=== PATIENT | male | born 1985 | race American Indian/Alaskan Native ===

== ENCOUNTER 2020-10-29 11:06 | Emergency (ER) | payer SELFPAY ==
[2020-10-29 11:17] VITALS: BP 148/89
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
--- NOTE | 2020-10-29 12:22 | XRay Report ---
LEFT HIP 2 VIEW(S) INDICATION / CLINICAL INFORMATION: LEFT HIP PAIN HX OF LEFT HIP JANAY COMPARISON: None available. FINDINGS: BONES / JOINT (S): Previous fracture ORIF transcervical left femoral neck fracture with single lag sc rew. No acute fracture of pelvis or left hip. 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 SOFT TISSUES: No significant abnormality. ADDITIONAL FINDINGS: None. Signer Name: Quoc Hendrix MD Signed: 10/29/2020 12:18 PM Workstation Name: [id number]
== END 2020-10-29 13:28 | disposition home or self-care (01) ==
LOC: ED 11:06
DX: L02.818 Cutaneous abscess of other sites (principal); M25.552 Pain in left hip; F17.200 Nicotine dependence, unspecified, uncomplicated; F12.90 Cannabis use, unspecified, uncomplicated; Z98.890 Other specified postprocedural states; Z79.899 Other long term (current) drug therapy

== ENCOUNTER 2021-09-29 19:33 | Emergency (ER) | payer SELFPAY ==
[2021-09-29] MEDS ORDERED: IBUPROFEN 600 MG TAB PO ONE (22:15)
[2021-09-29] MEDS ORDERED: LIDOCAINE (1%) 10 MG/1 ML VIAL 20 ML MDV INFILTRATI ONE (22:15)
[2021-09-29] MEDS ORDERED: ACETAMINOPHEN 500 MG TAB PO ONE (22:15)
[2021-09-29] MEDS ORDERED: TETANUS,DIPH,PERTUSS(ACELL) VACCINE 0.5 ML SYRINGE IM ONE (22:15)
--- NOTE | 2021-09-30 02:02 | Emergency Department Report ---
- General Chief Complaint: Wound/Laceration Stated Complaint: CUT ON ARM Source: patient Mode of arrival: Ambulatory Limitations: No Limitations - History of Present Illness Initial Comments: Patient is a 36-year-old -[place] male with no past medical history and he is not up-to-date with his tetanus vaccinations presents to the ED with complaint of acute onset painful bleeding left upper arm after a ceramic portion of a toilet seat accidentally cut his left upper arm while lifting the toilet s eat at work 2 hours ago. 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 Patient states that the bleeding is not well controlled. Patient denies fall, dizziness, syncope, headache, neck pain, nausea and vomiting, chest pain or shortness of breath, numbness and tingling or weakness of left upper extremity. -: Sudden, hour(s) (2) Location: other (Medial left upper arm) Extremity Location: Left: Arm (Medial left upper arm laceration wound) 1 - Laceration wound Place: work Patient Tetanus UTD: No Context: accidental, sharp object use Associated Symptoms: pain. denies: loss of feeling/numbness, suspect foreign body present, unable to move injured part, weakness followed by dizziness, nausea/vomiting, fever - Related Data Previous Rx's Medication Instructions Recorded Last Taken Type Ibuprofen [Motrin] 800 mg PO Q8HR PRN #24 tablet 09/30/21 Unknown Rx Sulfamethoxazole/Trimethoprim 1 each PO BID 7 Days #20 tablet 09/30/21 Unknown Rx [Bactrim DS TAB] Allergies Allergy/AdvReac Type Severity Reaction Status Date / Time No Known Allergies Allergy Unverified 10/29/20 11:14 ED Review of Systems ROS: Stated complaint: CUT ON ARM Other details as noted in HPI Constitutional: denies: chills, fever Eyes: denies: eye pain, eye discharge, vision change ENT: denies: ear pain, throat pain Respiratory: denies: cough, shortness of breath, wheezing Cardiovascular: denies: chest pain, palpitations Endocrine: no symptoms reported Gastrointestinal: denies: abdominal pain, nausea, diarrhea Genitourinary: denies: urgency, dysuria Musculoskeletal: arthralgia (Left upper arm pain due to a bleeding laceration wound). denies: back pain, joint swelling Skin: other (Bleeding laceration wound on medial left upper arm). denies: rash, lesions Neurological: denies: headache, weakness, paresthesias Psychiatric: denies: anxiety, depression Hematological/Lymphatic: denies: easy bleeding, easy bruising ED Past Medical Hx - Past Medical History Additional medical history: Left hip - Surgical History Additional Surgical History: Left hip droene - Social History Smoking Status: Never Smoker Substance Use Type: Alcohol, Marijuana - Medications Home Medications: Home Medications Medication Instructions Recorded Confirmed Last Taken Type Ibuprofen [Motrin] 800 mg PO Q8HR PRN #24 tablet 09/30/21 Unknown Rx Sulfamethoxazole/Trimethoprim 1 each PO BID 7 Days #20 tablet 09/30/21 Unknown Rx [Bactrim DS TAB] ED Physical Exam - General Limitations: No Limitations General appearance: alert, in no apparent distress - Head Head exam: Present: atraumatic, normocephalic, normal inspection - Eye Eye exam: Present: normal appearance, PERRL, EOMI Pupils: Present: normal accommodation - ENT ENT exam: Present: normal exam, normal orophraynx, mucous membranes moist, TM's normal bilaterally, normal external ear exam - Neck Neck exam: Present: normal inspection, full ROM. Absent: tenderness - Respiratory Respiratory exam: Present: normal lung sounds bilaterally. Absent: respiratory distress, wheezes, rales, rhonchi, stridor, chest wall tenderness, accessory muscle use, decreased breath sounds, prolonged expiratory - Cardiovascular Cardiovascular Exam: Present: regular rate, normal rhythm, normal heart sounds. Absent: systolic murmur, diastolic murmur, rubs, gallop - GI/Abdominal GI/Abdominal exam: Present: soft, normal bowel sounds. Absent: tenderness, guarding, rebound, hyperactive bowel sounds, hypoactive bowel sounds, organomegaly - Extremities Exam Extremities exam: Present: normal inspection, full ROM, tenderness (Palpable medial left upper arm tenderness due to a bleeding 6 cm laceration wound), normal capillary refill. Absent: pedal edema, joint swelling - Back Exam Back exam: Present: normal inspection, full ROM. Absent: tenderness, CVA tenderness (R), CVA tenderness (L), muscle spasm, paraspinal tenderness, vertebral tenderness - Neurological Exam Neurological exam: Present: alert, oriented X3, CN II-XII intact, normal gait, reflexes normal - Psychiatric Psychiatric exam: Present: normal affect, normal mood - Skin Skin exam: Present: warm, dry, intact, normal color, other (Bleeding 6 cm laceration wound on left upper arm). Absent: rash ED Course Vital Signs 09/29/21 09/30/21 22:00 02:10 Temperature 97.6 F 97.0 F L Pulse Rate 70 76 Respiratory 18 18 Rate Blood Pressure 124/99 Blood Pressure 132/78 [Left] O2 Sat by Pulse 98 97 Oximetry - Laceration /Wound Repair Left Upper Medial Arm Wound Location: upper extremity (Medial left upper arm) Wound Length (cm): 6 Wound's Depth, Shape: superficial, linear Wound Explored: contaminated Irrigated w/ Saline (ccs): 300 Betadine Prep?: Yes Anesthesia: 1% Lidocaine Volume Anesthetic (ccs): 7 Wound Debrided: extensive Wound Repaired With: sutures Suture Size/Type: 3:0, proline Number of Sutures: 15 Layer Closure?: No Sterile Dressing Applied?: Yes Progress: The area was extensively debrided with normal saline and Betadine solutions. Lidocaine 1% solution was used as a local anesthetic. When anesthesia was fully achieved, Prolene 3-0 sutures were used for a total of 15 sutures. The wound was then dressed with 4 x 4 gauzes and Kerlix gauze after cleaning with normal saline. The patient was thereafter discharged home on pain medication and pro phylactic antibiotics and advised to follow-up with his primary care physician in 7 to 10 days for reevaluation or return to the ED immediately if symptoms get worse. Patient was also advised to return to the ED or to his primary care physician in 12 to 14 days for suture removal. ED Medical Decision Making - Medical Decision Making This is a 36-year-old -[place] male with no past medical history and he is not up-to-date with his tetanus vaccinations presents to the ED with complaint of acute onset painful bleeding left upper arm after a ceramic portion of a toilet seat accidentally cut his left upper arm while lifting the toilet seat at work 2 hours ago. 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 Patient states that the bleeding is not well controlled. In the ED, patient is alert and oriented x3 and is not in any distress. Patient was treated for pain in the ED and also received booster tetanus vaccination. The area was extensively debrided with normal saline and Betadine solutions. Lidocaine 1% solution was used as a local anesthetic. When anesthesia was fully achieved, Prolene 3-0 sutures were used for a total of 15 sutures. The wound was then dressed with 4 x 4 gauzes and Kerlix gauze after cleaning with normal saline. The patient was thereafter discharged home on pain medication and prophylactic antibiotics and advised to follow-up with his primary care physician in 7 to 10 days for reevaluation or return to the ED immediately if symptoms get worse. Patient was also advised to return to the ED or to his primary care physician in 12 to 14 days for suture removal. - Differential Diagnosis Arm laceration; puncture wound; abrasion; arm injury Critical care attestation.: If time is entered above; I have spent that time in minutes in the direct care of this critically ill patient, excluding procedure time. ED Disposition Clinical Impression: Laceration of left upper arm without complication Qualifiers: Encounter type: initial encounter Qualified Code(s): S41.112A - Laceration without foreign body of left upper arm, initial encounter Disposition: 01 HOME / SELF CARE / HOMELESS Is pt being admited?: No Does the pt Need Aspirin: No Condition: Stable Instructions: Laceration Care, Adult, [id number], Sutures, [place], or Adhesive Wound Closure, [id number], Sutured Wound Care, [id number] Additional Instructions: Take medication with food, drink plenty of fluids and follow-up with your primary care physician in 7 to 10 days for reevaluation. Return to the ED imme diately if symptoms get worse. Otherwise return to the ED or your primary care physician in 12 to 14 days for suture removal. Prescriptions: Sulfamethoxazole/Trimethoprim [Bactrim DS TAB] 1 each PO BID 7 Days #20 tablet Ibuprofen [Motrin] 800 mg PO Q8HR PRN #24 tablet PRN Reason: Pain , Severe (7-10) Referrals: [facility] [Provider Group] - 7-10 days Time of Disposition: 02:01 Print Language: ARMENIAN
[2021-09-30 02:11] VITALS: BP 132/78
== END 2021-09-30 02:11 | disposition home or self-care (01) ==
LOC: ED 19:33
DX: S41.112A Laceration without foreign body of left upper arm, initial encounter (principal); F12.90 Cannabis use, unspecified, uncomplicated; Z72.89 Other problems related to lifestyle; Z79.899 Other long term (current) drug therapy; W26.8XXA Contact with other sharp object(s), not elsewhere classified, initial encounter; Y93.89 Activity, other specified; Y92.89 Other specified places as the place of occurrence of the external cause; Y99.8 Other external cause status
CPT/HCPCS: 90471; 90715; 96372; 99282